=== PATIENT | female | born 1980 | race Caucasian/White ===

== ENCOUNTER 2017-10-30 18:17 | Emergency (ER) | payer OTHER ==
[2017-10-30 18:21] VITALS: BMI 30.2
[2017-10-30 18:25] VITALS: RESP 18; TEMP 98.4; O2SAT 100
--- NOTE | 2017-10-30 19:47 | ED PDOC ---
Arrival/HPI - General Historian: Patient <Ty Paz - Last Filed: 10/30/17 20:20> <Romaine Gracia - Last Filed: 10/31/17 06:30> - General Chief Complaint: Eye Problem Time Seen by Provider: 10/30/17 19:15 - History of Present Illness Narrative History of Present Illness (Text): 10/30/17 19:34 Pt is 37 yo F with no significant PMH presents to ED with 3 days of periorbital swelling. Patients states that there is tenderness around her right eye. Patient states that there is some pain with upward gaze and rightward gaze. Patient denies any trauma, discharge, tearing, or erythematous/irritated eye. Patient denies any recent sick contacts, nasal congestion, post nasal drip, ear pain, throat pain, or shortness of breath. PMD: Joan (Ty Paz) Past Medical History - Infectious Disease Hx of Infectious Diseases: None - Psychiatric Hx Substance Use: No - Surgical History Hx Section: Yes (x1) Other/Comment: R ear surgery - Anesthesia Hx Anesthesia: Yes Hx Anesthesia Reactions: No Hx Malignant Hyperthermia: No <Ty Paz - Last Filed: 10/30/17 20:20> Family/Social History Family/Social History: No Known Family HX Smoking Status: Never Smoked Hx Alcohol Use: No Hx Substance Use: No <Ty Paz - Last Filed: 10/30/17 20:20> Allergies/Home Meds <Ty Paz - Last Filed: 10/30/17 20:20> <Romaine Gracia - Last Filed: 10/31/17 06:30> Allergies/Adverse Reactions: Allergies No Known Allergies Allergy (Verified 10/30/17 18:21) Review of Systems - Physician Review All systems were reviewed & negative as marked: Yes (12 point ROS reviewed and is negative other than what is stated in HPI.) <Ty Paz - Last Filed: 10/30/17 20:20> Physical Exam - Physical Exam Physical Exam Limitations: Altered Mental Status Vital Signs Reviewed: Yes Temperature: Afebrile Blood Pressure: Normal Pulse: Regular Respiratory Rate: Normal Appearance: Positive for: Well-Appearing Pain Distress: None Mental Status: Positive for: Alert and Oriented X 3 - Systems Exam Head: Present: Atraumatic, Normocephalic, Swelling (right periorbital swelling) Pupils: Present: PERRL Extroacular Muscles: Present: EOMI. No: Gaze Palsy, Entrapment Conjunctiva: Present: Normal. No: Injected, Icteric Ears: Present: Normal Mouth: Present: Moist Mucous Membranes Pharnyx: Present: Normal Neck: Present: Normal Range of Motion Respiratory/Chest: Present: Clear to Auscultation. No: Wheezes, Rales, Rhonchi Cardiovascular: Present: Regular Rate and Rhythm Abdomen: No: Tenderness, Distention, Rebound, Guarding Upper Extremity: Present: Normal Inspection Lower Extremity: Present: Normal Inspection Neurological: Present: GCS=15, CN II-XII Intact, Speech Normal Skin: Present: Warm, Dry, Normal Color. No: Rashes Psychiatric: Present: Alert, Oriented x 3, Normal Insight, Normal Concentration <Ty Paz - Last Filed: 10/30/17 20:20> Vital Signs Temp Pulse Resp BP Pulse Ox 10/30/17 20:17 68 18 120/70 100 10/30/17 18:25 98.4 F 82 18 111/71 100 Medical Decision Making <Ty Paz - Last Filed: 10/30/17 20:20> Reassessment Condition: Re-examined, Improved <Romaine Gracia - Last Filed: 10/31/17 06:30> ED Course and Treatment: 10/30/17 19:49 37 yo F presents to ED with right periorbital swelling. DDx discussed with patient including periorbital cellulitis, orbital cellulitis, and blepharitis was explained to patient. The risks of each were discussed and the likelihood of each in her situation. Further workup was offered toher, including lab work and CT scan, however patient elected to be treated conservatively. - Recommend warm compresses, keep right periorbital region clean with mild soap and water - Complete 10 day course of PO abx - Avoid touching/scratching - Follow up with PMD (Ty Paz) i had a long discussion with the patient regarding further lab/radiology imaging work-up which she refused and cautioned for complications but she wanted treatment at this time. 10/31/17 06:29 (Romaine Gracia) - Medication Orders Current Medication Orders: Discontinued Medications Ibuprofen (Motrin Tab) 800 mg PO STAT STA Stop: 10/30/17 20:05 Last Admin: 10/30/17 20:16 Dose: 800 mg Disposition/Present on Arrival - Present on Arrival Any Indicators Present on Arrival: No History of DVT/PE: No History of Uncontrolled Diabetes: No Urinary Catheter: No History of Decub. Ulcer: No History Surgical Site Infection Following: None - Disposition Have Diagnosis and Disposition been Completed?: Yes Disposition Time: 19:51 Patient Plan: Discharge <Ty Paz - Last Filed: 10/30/17 20:20> <Romaine Gracia - Last Filed: 10/31/17 06:30> - Disposition Diagnosis: Periorbital cellulitis of right eye Disposition: HOME/ ROUTINE Condition: STABLE Discharge Instructions (ExitCare): Cellulitis (Skin Infection), Adult (DC) Additional Instructions: 1. Apply warm compresses to affected three to four times a day 2. Complete 10 day course of antibiotics 3. Keep right eye clean with mild soap and water 4. Follow up with primary doctor within 3-5 days 5. Return to ED if symptoms worsen Prescriptions: Cephalexin [Keflex] 500 mg PO Q12H #20 capsule Ibuprofen [Motrin] 600 mg PO TID PRN #15 tab PRN Reason: Pain, Moderate (4-7) Forms: [facility] (Greenlandic)
[2017-10-30 20:17] VITALS: BP 120/70; PULSE 68
== END 2017-10-30 20:17 | disposition home or self-care (01) ==
LOC: MERGE 18:17 → ED 18:17
DX: L03.213 Periorbital cellulitis (principal)

== ENCOUNTER 2017-11-02 18:58 | Inpatient (IN) | payer OTHER ==
[2017-11-02] MEDS ORDERED: Sodium Chloride 0.9% 500 ML IV STA (19:46)
[2017-11-02 20:17] LABS: BASO # 0.03 K/mm3 (0.0-2.0); BASO % 0.5 % (0.0-3.0); EOS # 0.2 (0.0-0.7); EOS % 2.8 % (1.5-5.0); GRAN # 2.95 (1.4-6.5); GRAN % 48.3 % (50.0-68.0); LYMPH # 2.5 (1.2-3.4); LYMPH % 40.5 % (22.0-35.0); MEAN CELL VOLUME 89.9 fl (80.0-105.0); MEAN CORPUSCULAR HGB CONC 33.3 g/dl (31.0-37.0); MEAN PLATELET VOLUME 10.4 fl (7.0-11.0); MONO # 0.5 (0.1-0.6); MONO % 7.9 % (1.0-6.0); RBC 4.34 10^6/uL (3.5-6.1); RED CELL DISTRIBUTION WIDTH 12.5 % (11.5-14.5); WHITE BLOOD COUNT 6.1 10^3/ul (4.5-11.0)
[2017-11-02 20:30] LABS: ALB/GLOB RATIO 1.3 (1.1-1.8); ALBUMIN 4.6 g/dL (3.0-4.8); ALT/SGPT 19 U/L (7-56); AST/SGOT 22 U/L (14-36); BLOOD UREA NITROGEN 20 mg/dL (7-21); CALCIUM 9.7 mg/dL (8.4-10.5); GFR AFRICAN-AMERICAN > 60; GFR NON-AFRICAN AMERICAN > 60
--- NOTE | 2017-11-02 20:33 | ED PDOC ---
Arrival/HPI <Bill Nicole - Last Filed: 11/02/17 22:49> - General Historian: Patient - History of Present Illness Time/Duration: Other (4 days) <Jeannie Mireles - Last Filed: 11/03/17 01:27> - General Chief Complaint: ENT Problem Time Seen by Provider: 11/02/17 19:05 - History of Present Illness Narrative History of Present Illness (Text): 11/02/17 20:29 37yr old female presents today with right eye pain, redness, swelling that has been worsening over the past 4 days. pt states she was seen in the ER for the same complaint and given ABX. pt states the medications are not working. pt states pain and swelling has increased. pt is c/o pain with upward movement of the eye and lateral movement of the eye. pt denies fevers at home. no headache or dizziness. no other complaints. (Jeannie Mireles) Past Medical History - Provider Review Nursing Documentation Reviewed: Yes - Travel History Have you recently traveled outside [place] w/in the past 3 mons?: No - Infectious Disease Hx of Infectious Diseases: None - Psychiatric Hx Substance Use: No - Surgical History Hx Section: Yes (x1) Other/Comment: R ear surgery - Anesthesia Hx Anesthesia: Yes Hx Anesthesia Reactions: No Hx Malignant Hyperthermia: No <Jeannie Mireles - Last Filed: 11/03/17 01:27> Family/Social History - Physician Review Nursing Documentation Reviewed: Yes Family/Social History: Unknown Family HX Smoking Status: Never Smoked Hx Alcohol Use: No Hx Substance Use: No <Jeannie Mireles - Last Filed: 11/03/17 01:27> Allergies/Home Meds <Bill Nicole - Last Filed: 11/02/17 22:49> <Jeannie Mireles - Last Filed: 11/03/17 01:27> Allergies/Adverse Reactions: Allergies No Known Allergies Allergy (Verified 11/02/17 19:13) Review of Systems - Review of Systems Constitutional: absent: Fatigue, Fevers Eyes: Eye Pain. absent: Vision Changes, Photophobia ENT: absent: Sore Throat, Sinus Congestion Respiratory: absent: SOB, Cough Cardiovascular: absent: Chest Pain, Palpitations Gastrointestinal: absent: Abdominal Pain, Nausea, Vomiting Musculoskeletal: absent: Arthralgias Skin: Cellulitis Neurological: absent: Headache, Dizziness Psychiatric: absent: Anxiety, Depression, Suicidal Ideation <Jeannie Mireles - Last Filed: 11/03/17 01:27> Physical Exam Vital Signs Reviewed: Yes Temperature: Afebrile Blood Pressure: Normal Pulse: Regular Respiratory Rate: Normal Appearance: Positive for: Well-Appearing, Non-Toxic, Comfortable Pain Distress: None Mental Status: Positive for: Alert and Oriented X 3 - Systems Exam Head: Present: Atraumatic, Swelling, Other (swelling erythema, warmth noted to right ivelisse orbital region; + tenderness to upper eye lid) Pupils: Present: PERRL Extroacular Muscles: Present: EOMI. No: Entrapment Conjunctiva: Present: Injected (right eye conjunctival injection) Mouth: Present: Moist Mucous Membranes. No: Drooling, Trismus Pharnyx: Present: Normal. No: ERYTHEMA, EXUDATE, TONSILS ENLARGED, Peritonsilar Swelling, Uvular Deviation, Muffled/Hoarse Voice Nose (External): Present: Atraumatic Nose (Internal): Present: Normal Inspection Neck: Present: Normal Range of Motion Respiratory/Chest: Present: Clear to Auscultation, Good Air Exchange. No: Respiratory Distress, Accessory Muscle Use Cardiovascular: Present: Regular Rate and Rhythm, Normal S1, S2. No: Murmurs Neurological: Present: GCS=15, Speech Normal Skin: Present: Warm, Dry, Normal Color. No: Rashes Psychiatric: Present: Alert, Oriented x 3 <Jeannie Mireles - Last Filed: 11/03/17 01:27> Vital Signs Temp Pulse Resp BP Pulse Ox 11/02/17 19:09 98.5 F 84 18 123/76 100 Medical Decision Making <Bill Nicole - Last Filed: 11/02/17 22:49> <Jeannie Mireles - Last Filed: 11/03/17 01:27> ED Course and Treatment: 11/02/17 20:35 37yr old female with right eye redness, swelling worsening despite PO abx. cbc: wnl cmp: wnl blood cultures: pending Ct maxillofacial with contrast; FINDINGS: Bones/joints: No acute fracture. Soft tissues: Normal. Orbits: Mild right periorbital soft tissue swelling. There is asymmetric enlargement of the right lacrimal gland with surrounding induration. There may be slight induration around the left lacrimal gland and slight prominence although is much more on the right. The left retrobulbar fat is normal. There is slight induration of the right retrobulbar fat adjacent to lacrimal gland. Sinuses: Normal. No air-fluid levels. IMPRESSION: 1. Asymmetric enlargement and inflammation of the right lacrimal gland. There is question of slight prominence and induration around the smaller left lacrimal gland as well. Some extension of induration extends into the right retro-bulbar fat. There is mild right periorbital soft tissue swelling. Etiology is uncertain although considerations may include autoimmune disease such as Sjogren's. 2. Otherwise negative maxillofacial CT. zosyn given IV case discussed with dr. ruiz accepts admission all aspects of this case were discussed the attending of record. impression; periorbital cellulitis, failure of outpatient abx admit observational status to med/surg (Jeannie Mireles) - Lab Interpretations Lab Results: 11/02/17 20:12 11/02/17 20:12 Lab Results 11/02/17 20:12: WBC 6.1, RBC 4.34, Hgb 13.0, Hct 39.0, MCV 89.9, MCH 30.0, MCHC 33.3, RDW 12.5, Plt Count 208, MPV 10.4, Gran % 48.3 L, Lymph % (Auto) 40.5 H, Person % (Auto) 7.9 H, Eos % (Auto) 2.8, Baso % (Auto) 0.5, Gran # 2.95, Lymph # ( Auto) 2.5, Person # (Auto) 0.5, Eos # (Auto) 0.2, Baso # (Auto) 0.03 11/02/17 20:12: Sodium 142, Potassium 3.7, Chloride 104, Carbon Dioxide 27, Anion Gap 15, BUN 20, Creatinine 0.7, Est GFR ( Amer) > 60, Est GFR (Non- Af Amer) > 60, Random Glucose 90, Calcium 9.7, Total Bilirubin 0.3, AST 22, ALT 19, Alkaline Phosphatase 44, Total Protein 8.3, Albumin 4.6, Globulin 3.7, Albumin/Globulin Ratio 1.3 - RAD Interpretation Radiology Orders: 11/02/17 19:45 MAXILLOFACIAL W/CONTRAST [CT] Stat - Medication Orders Current Medication Orders: Heparin Sodium (Porcine) (Heparin) 5,000 units SC Q12 MANUELA PRN Reason: Protocol Ketorolac Tromethamine (Toradol) 15 mg IVP Q6 PRN PRN Reason: Pain, moderate (4-7) Pantoprazole Sodium (Protonix Inj) 40 mg IVP DAILY MANUELA Discontinued Medications Sodium Chloride (Sodium Chloride 0.9%) 500 mls @ 999 mls/hr IV .Q31M STA Stop: 11/02/17 20:16 Last Admin: 11/02/17 20:03 Dose: 999 mls/hr eMAR Start Stop Document 11/02/17 20:03 LA (Rec: 11/02/17 20:04 LA [id number]) Intravenous Solution Start Date 11/02/17 Start Time 20:04 End Date 11/02/17 End time 20:35 Total Infusion Time 31 Piperacillin Sod/Tazobactam Sod (Zosyn 3.375 In Ns 100ml) 100 mls @ 200 mls/hr IVPB STAT STA PRN Reason: Protocol Stop: 11/02/17 23:44 Last Admin: 11/02/17 23:30 Dose: 200 mls/hr eMAR Start Stop Document 11/02/17 23:30 JOL (Rec: 11/02/17 23:49 JOL [id number]) Intravenous Solution Start Date 11/02/17 Start Time 23:30 End Date 11/03/17 End time 00:00 Total Infusion Time 30 - 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 NAM has examined the patient and agrees with the treatment plan. <Bill Nicole - Last Filed: 11/02/17 22:49> Disposition/Present on Arrival <Bill Nicole - Last Filed: 11/02/17 22:49> - Present on Arrival Any Indicators Present on Arrival: No History of DVT/PE: No History of Uncontrolled Diabetes: No Urinary Catheter: No History of Decub. Ulcer: No History Surgical Site Infection Following: None - Disposition Have Diagnosis and Disposition been Completed?: Yes Disposition Time: 22:40 Patient Plan: Observation <Jeannie Mireles - Last Filed: 11/03/17 01:27> - Disposition Diagnosis: Periorbital cellulitis of right eye, Failure of outpatient treatment Disposition: HOSPITALIZED Condition: FAIR
[2017-11-02] MEDS ORDERED: Iohexol 350 MG/100 ML VIAL ONE (21:07)
[2017-11-02] MEDS ORDERED: Piperacillin/Tazobact 3.375 gm 100 ML IVPB STA (23:15)
--- NOTE | 2017-11-02 23:46 | CP.PCM.HP ---
<Balaji Paul - Last Filed: 11/03/17 08:46> History of Present Illness - History of Present Illness History of Present Illness: 37 year old female with no past medical history comes in today complaining of right eye pain and swelling for the past three days. Of note the patient was seen in the emergency room three days ago and discharged with Keflex PO. The patient states taking the medications as prescribed however the swelling continued to increase in severity. The patient denies any accidents or trauma to the area. She also denies any makeup changes or or new cleansers to the face. She denies any chest pain, shortness of breath, fevers, chills, nausea, vomiting, syncopal episodes or any other complaints. Past medical history: Denies Allergies: Denies Past surgical history:Denies Social history: Recently moved from [place]. Lost 2 years ago. Denies illicit drug use. Cedric alcohol or smoking PMD: Denies Present on Admission - Present on Admission Any Indicators Present on Admission: No Review of Systems - Constitutional Constitutional: absent: Chills, Daytime Sleepiness, Headache, Night Sweats, Snoring, Weakness - EENT Eyes: Blurred Vision, Change in Vision, Diplopia. absent: Dry Eye Ears: absent: Decreased Hearing, Ear Discharge, Disequilibrium Nose/Mouth/Throat: absent: Nasal Congestion, Nose Pain, Bleeding Gums, Dry Mouth - Cardiovascular Cardiovascular: absent: Chest Pain, Claudication, Irregular Heart Rhythm, Leg Edema, Palpitations, Pedal Edema - Respiratory Respiratory: absent: Dyspnea, Hemoptysis, Snoring, Stridor, Pain on Inspiration - Gastrointestinal Gastrointestinal: absent: Belching, Change in Stool Character, Diarrhea, Dyspepsia, Fecal Incontinence, Loose Stools, Vomiting - Genitourinary Genitourinary: absent: Change in Urinary Stream, Pyuria, Nocturia, Freq UTI, Bladder Distension - Menstruation Menstruation: absent: Cycle Variable - Musculoskeletal Musculoskeletal: absent: Arthralgias, Limited Range of Motion, Muscle Weakness, Myalgias, Stiffness - Integumentary Integumentary: absent: Alopecia, Photosensitivity, Sores, Swelling - Neurological Neurological: absent: Abnormal Gait, Behavioral Changes, Headaches, Paresthesias , Syncope, Tingling, Tremor, Vertigo, Weakness - Endocrine Endocrine: absent: Polydipsia, Polyphagia, Polyuria - Hematologic/Lymphatic Hematologic: absent: Easy Bleeding, Easy Bruising Past Patient History - Infectious Disease Hx of Infectious Diseases: None - Past Social History Smoking Status: Never Smoked - PSYCHIATRIC Hx Substance Use: No - SURGICAL HISTORY Hx Section: Yes (x1) Other/Comment: R ear surgery - ANESTHESIA Hx Anesthesia: Yes Hx Anesthesia Reactions: No Hx Malignant Hyperthermia: No Meds Allergies/Adverse Reactions: Allergies Allergy/AdvReac Type Severity Reaction Status Date / Time No Known Allergies Allergy Verified 11/02/17 19:13 Physical Exam - Head Exam Head Exam: ATRAUMATIC, NORMAL INSPECTION, NORMOCEPHALIC - Eye Exam Eye Exam: EOMI, Normal appearance, PERRL Pupil Exam: PERRL. absent: Fixed, Irregular, Miosis - ENT Exam ENT Exam: Mucous Membranes Moist - Neck Exam Neck exam: Negative for: Lymphadenopathy, Thyromegaly - Respiratory Exam Respiratory Exam: Clear to Auscultation Bilateral, NORMAL BREATHING PATTERN. absent: Chest Wall Tenderness, Prolonged Expiratory Phase, Respiratory Distress - Cardiovascular Exam Cardiovascular Exam: REGULAR RHYTHM, +S1, +S2 - GI/Abdominal Exam GI & Abdominal Exam: Normal Bowel Sounds, Soft. absent: Organomegaly, Tenderness - Extremities Exam Extremities exam: Positive for: normal inspection. Negative for: full ROM, joint swelling, pedal edema - Back Exam Back exam: NORMAL INSPECTION. absent: CVA tenderness (L), CVA tenderness (R), paraspinal tenderness - Neurological Exam Neurological exam: Alert, CN II-XII Intact, Oriented x3 - Psychiatric Exam Psychiatric exam: Normal Affect, Normal Mood - Skin Skin Exam: Dry, Intact Results - Vital Signs Recent Vital Signs: Last Vital Signs Temp 98.5 F 11/02/17 19:09 Pulse 84 11/02/17 19:09 Resp 18 11/02/17 19:09 BP 123/76 11/02/17 19:09 Pulse Ox 100 11/02/17 19:09 - Labs Result Diagrams: 11/03/17 07:00 11/03/17 07:00 Labs: Laboratory Results - last 24 hr 11/02/17 11/02/17 20:12 20:12 WBC 6.1 RBC 4.34 Hgb 13.0 Hct 39.0 MCV 89.9 MCH 30.0 MCHC 33.3 RDW 12.5 Plt Count 208 MPV 10.4 Gran % 48.3 L Lymph % (Auto) 40.5 H [place] % (Auto) 7.9 H Eos % (Auto) 2.8 Baso % (Auto) 0.5 Gran # 2.95 Lymph # (Auto) 2.5 [place] # (Auto) 0.5 Eos # (Auto) 0.2 Baso # (Auto) 0.03 Sodium 142 Potassium 3.7 Chloride 104 Carbon Dioxide 27 Anion Gap 15 BUN 20 Creatinine 0.7 Est GFR ( Amer) > 60 Est GFR (Non-Af Amer) > 60 Random Glucose 90 Calcium 9.7 Total Bilirubin 0.3 AST 22 ALT 19 Alkaline Phosphatase 44 Total Protein 8.3 Albumin 4.6 Globulin 3.7 Albumin/Globulin Ratio 1.3 Assessment & Plan - Assessment and Plan (Free Text) Assessment: 37 year old female with no past medical history being admitted for failure of op treatment of periorbital cellultis Plan: 1. Periorbital cellulitis -Zosyn IV and Vancomycin -Ophthomology Consult. Help appreciated. -ID consult. Help appreciated -Toradol for Pain management PPX -Heparin -Protonix Plan discussed with Dr. Jay. Balaji Paul, PGY1 <Misty CONCEPCION,Terry - Last Filed: 11/03/17 13:49> Results - Vital Signs Recent Vital Signs: Last Vital Signs Temp 98 F 11/03/17 07:00 Pulse 80 11/03/17 07:00 Resp 18 11/03/17 07:00 BP 108/63 11/03/17 07:00 Pulse Ox 100 11/03/17 07:00 - Labs Result Diagrams: 11/03/17 07:00 11/03/17 07:00 Labs: Laboratory Results - last 24 hr 11/03/17 11/03/17 07:00 07:00 WBC 4.0 L D RBC 3.99 Hgb 11.7 L Hct 35.5 L MCV 89.0 MCH 29.3 MCHC 33.0 RDW 12.5 Plt Count 186 MPV 10.1 Gran % 50.3 Lymph % (Auto) 37.1 H [place] % (Auto) 8.8 H Eos % (Auto) 3.5 Baso % (Auto) 0.3 Gran # 1.99 Lymph # (Auto) 1.5 [place] # (Auto) 0.4 Eos # (Auto) 0.1 Baso # (Auto) 0.01 Sodium 143 Potassium 3.9 Chloride 107 Carbon Dioxide 28 Anion Gap 12 BUN 12 Creatinine 0.6 L Est GFR ( Amer) > 60 Est GFR (Non-Af Amer) > 60 Random Glucose 102 Calcium 9.0 Total Bilirubin 0.5 AST 17 ALT 23 Alkaline Phosphatase 37 L Total Protein 6.9 Albumin 3.9 Globulin 3.0 Albumin/Globulin Ratio 1.3 Attending/Attestation - Attestation I have personally seen and examined this patient.: Yes I have fully participated in the care of the patient.: Yes I have reviewed all pertinent clinical information: Yes Notes (Text): -I agree with the above H&P completed by the resident physician with the following additions and/or changes: -The patient is a 37 year old woman with no past medical history, who presents with 3 days of worsening right eye edema, erythema and pain, most consistent with periorbital cellulitis. She had presented to the ED 3 days ago after her symptoms started and was discharged home with oral Keflex which was ineffective. On exam, she has no evidence of proptosis, pain with movement of EOMs or vision loss. She will be placed on empiric IV Zosyn and ophthalmology has been consulted.
[2017-11-03 02:11] VITALS: BMI 24.0
[2017-11-03 07:30] LABS: BASO # 0.01 K/mm3 (0.0-2.0); BASO % 0.3 % (0.0-3.0); EOS # 0.1 (0.0-0.7); EOS % 3.5 % (1.5-5.0); GRAN # 1.99 (1.4-6.5); GRAN % 50.3 % (50.0-68.0); HEMOGLOBIN 11.7 g/dL (12.0-16.0); LYMPH # 1.5 (1.2-3.4); LYMPH % 37.1 % (22.0-35.0); MEAN CORPUSCULAR HEMOGLOBIN 29.3 pg (25.0-35.0); MEAN PLATELET VOLUME 10.1 fl (7.0-11.0); MONO # 0.4 (0.1-0.6); MONO % 8.8 % (1.0-6.0); RBC 3.99 10^6/uL (3.5-6.1); RED CELL DISTRIBUTION WIDTH 12.5 % (11.5-14.5)
[2017-11-03 07:47] LABS: ALB/GLOB RATIO 1.3 (1.1-1.8); ALBUMIN 3.9 g/dL (3.0-4.8); ALT/SGPT 23 U/L (7-56); AST/SGOT 17 U/L (14-36); BLOOD UREA NITROGEN 12 mg/dL (7-21); GFR AFRICAN-AMERICAN > 60; GFR NON-AFRICAN AMERICAN > 60
--- NOTE | 2017-11-03 08:48 | CT ---
PROCEDURE: CT MAXILLOFACIAL BONES WITH CONTRAST HISTORY: R eye pain swelling/redness; r/o orbital celluliti COMPARISON: None. TECHNIQUE: Contiguous axial CT images of the maxillofacial bones were obtained following administration of IV contrast. Coronal and sagittal reformats were generated. Intravenous contrast Dose: Radiation dose: Total exam DLP = mGy-cm. This CT exam was performed using one or more of the following dose reduction techniques: Automated exposure control, adjustment of the mA and/or kV according to patient size, and/or use of iterative reconstruction technique. FINDINGS: NASAL BONES: Unremarkable. ORBITS: Asymmetric enlargement and inflammation of the right lacrimal gland with question of slight prominence an injury [place] around a small left lacrimal gland as well. Extension of induration extends into the right retrobulbar fat with mild right periorbital soft tissue swelling, of uncertain etiology. PARANASAL SINUSES/ MASTOIDS: Clear. MAXILLA: Unremarkable. MANDIBLE/ TEMPOROMANDIBULAR JOINTS: Unremarkable. SKULL BASE: Unremarkable. TEMPORAL BONES: Middle ears and mastoid grossly unremarkable. OTHER FINDINGS: None. IMPRESSION: Asymmetric enlargement and inflammation of the right lacrimal gland with question of slight prominence an injury [place] around a small left lacrimal gland as well. Extension of induration extends into the right retrobulbar fat with mild right periorbital soft tissue swelling, of uncertain etiology.Correlate for Sjogren syndrome.
[2017-11-03] MEDS: Vancomycin 1gm in NS 250ml 1 GM/250 ML BAG IVPB SCH (09:01)
--- NOTE | 2017-11-03 11:09 | CP.PCM.PN ---
<Imani Youngblood - Last Filed: 11/03/17 11:18> Subjective - Date & Time of Evaluation Date of Evaluation: 11/03/17 Time of Evaluation: 11:08 - Subjective Subjective: Imani Youngblood, PGY1, Medicine Progress Note for Dr Trujillo: Patient seen and examined at bedside. No acute events overnight. Pt reports that her right eye swelling and pain is improving today. Denies blurred vision, nasal discharge, headache, nausea, vomiting, fever, chills. Objective - Vital Signs/Intake and Output Vital Signs (last 24 hours): Temp Pulse Resp BP Pulse Ox 98 F 80 18 108/63 100 11/03/17 07:00 11/03/17 07:00 11/03/17 07:00 11/03/17 07:00 11/03/17 07:00 Intake and Output: 11/03/17 11/03/17 06:59 18:59 Intake Total 0 Balance 0 - Medications Medications: Current Medications Heparin Sodium (Porcine) (Heparin) 5,000 units SC Q12 MANUELA PRN Reason: Protocol Last Admin: 11/03/17 09:01 Dose: Not Given Piperacillin Sod/Tazobactam Sod (Zosyn 3.375 In Ns 100ml) 100 mls @ 200 mls/hr IVPB Q6 MANUELA PRN Reason: Protocol Stop: 11/03/17 18:29 Vancomycin HCl (Vancomycin 1gm) 1 gm in 250 mls @ 167 mls/hr IVPB DAILY MANUELA PRN Reason: Protocol Last Admin: 11/03/17 09:01 Dose: 167 mls/hr Ketorolac Tromethamine (Toradol) 15 mg IVP Q6 PRN PRN Reason: Pain, moderate (4-7) Pantoprazole Sodium (Protonix Inj) 40 mg IVP DAILY PENDING SALE TO [facility] Last Admin: 11/03/17 09:01 Dose: Not Given - Labs Labs: 11/03/17 07:00 11/03/17 07:00 - Additional Findings Additional findings: - Head Exam Head Exam: ATRAUMATIC, NORMAL INSPECTION, NORMOCEPHALIC - Eye Exam Eye Exam: EOMI, PERRL. right eye periorbital swelling/erythema, no conjunctival erythema, + mild swelling noted Pupil Exam: PERRL. absent: Fixed, Irregular, Miosis - ENT Exam ENT Exam: Mucous Membranes Moist - Neck Exam Neck exam: Negative for: Lymphadenopathy, Thyromegaly - Respiratory Exam Respiratory Exam: Clear to Auscultation Bilateral, NORMAL BREATHING PATTERN. absent: Chest Wall Tenderness, Prolonged Expiratory Phase, Respiratory Distress - Cardiovascular Exam Cardiovascular Exam: REGULAR RHYTHM, +S1, +S2 - GI/Abdominal Exam GI & Abdominal Exam: Normal Bowel Sounds, Soft. absent: Organomegaly, Tenderness - Extremities Exam Extremities exam: Positive for: normal inspection. Negative for: full ROM, joint swelling, pedal edema - Back Exam Back exam: NORMAL INSPECTION. absent: CVA tenderness (L), CVA tenderness (R), paraspinal tenderness - Neurological Exam Neurological exam: Alert, CN II-XII Intact, Oriented x3 - Psychiatric Exam Psychiatric exam: Normal Affect, Normal Mood - Skin Skin Exam: Dry, Intact Assessment and Plan - Assessment and Plan (Free Text) Assessment: 37 year old female with no PMH, presents for preseptal cellulitis: Periorbital cellulitis: -Zosyn and Vancomycin -Ophthomology Consult. Contacted Dr King's office today, states that Dr Alexander is covering today - [phone] (Dr will be in after 12:00 PM today). -ID consult. F/u recs. -Toradol for Pain management -Maxillofacial CT shows asymmetric enlargement and inflammation of the right lacrimal gland with question of slight prominence an injury medina around a small left lacrimal gland as well. Extension of induration extends into the right retrobulbar fat with mild right periorbital soft tissue swelling, of uncertain etiology.Correlate for Sjogren syndrome. PPX: -Heparin -Protonix Case seen and discussed with Dr. Trujillo. Imani Youngblood, PGY1 <Holli Trujillo - Last Filed: 11/03/17 14:32> Objective - Vital Signs/Intake and Output Vital Signs (last 24 hours): Temp Pulse Resp BP Pulse Ox 98 F 80 18 108/63 100 11/03/17 07:00 11/03/17 07:00 11/03/17 07:00 11/03/17 07:00 11/03/17 07:00 - Medications Medications: Current Medications Acetaminophen (Tylenol 325mg Tab) 650 mg PO Q4H PRN PRN Reason: MILD PAIN AND FEVER Famotidine (Pepcid) 40 mg PO HS MANUELA Heparin Sodium (Porcine) (Heparin) 5,000 units SC Q12 MANUELA PRN Reason: Protocol Last Admin: 11/03/17 09:01 Dose: Not Given Vancomycin HCl (Vancomycin 1gm) 1 gm in 250 mls @ 167 mls/hr IVPB DAILY MANUELA PRN Reason: Protocol Last Admin: 11/03/17 09:01 Dose: 167 mls/hr Meropenem (Merrem Iv 1 Gm Premix) 50 mls @ 100 mls/hr IVPB Q8 MANUELA PRN Reason: Protocol Stop: 11/10/17 14:01 Ketorolac Tromethamine (Toradol) 15 mg IVP Q6 PRN PRN Reason: Pain, moderate (4-7) Attending/Attestation - Attestation I have personally seen and examined this patient.: Yes I have fully participated in the care of the patient.: Yes I have reviewed all pertinent clinical information, including history, physical exam and plan: Yes Notes (Text): 11/03/17 14:30 37 year old female with no significant past medical history presents with right periorbitial cellulitis. She was recently prescribed keflex and did not respond to treatment. CT maxillofacial showed enlargement and inflammation of right lacrimal gland. Continue with iv antibiotics. ID and ophthalmology evaluation was requested. Holli Trujillo MD Hospitalist.
[2017-11-03] MEDS ORDERED: Piperacillin/Tazobact 3.375 gm 100 ML IVPB SCH (12:00)
--- NOTE | 2017-11-03 15:10 | MRI ---
PROCEDURE: MRI BRAIN WITHOUT CONTRAST HISTORY: r/o sinus ds COMPARISON: None. TECHNIQUE: Multiplanar, multisequence MR images of the brain were obtained without intravenous contrast enhancement. FINDINGS: HEMORRHAGE: None DWI: No evidence of an acute or early subacute infarction. BRAIN PARENCHYMA: No mass effect or edema. No atrophy or chronic microvascular ischemic changes. VENTRICLES: Unremarkable. No hydrocephalus. CRANIUM: Unremarkable. ORBITS: Grossly unremarkable. PARANASAL SINUSES/MASTOIDS: Clear VASCULAR SYSTEM: Skull base flow voids intact. OTHER FINDINGS: None. IMPRESSION: Unremarkable non contrast enhanced MRI of the brain.
[2017-11-03] MEDS: Meropenem IV 1 gm in NS 50 ML IVPB SCH ×2 (15:50→21:16)
--- NOTE | 2017-11-04 01:19 | CON ---
DATE: 11/03/2017 LOCATION: The patient was seen earlier today in 373, bed 3. CHIEF COMPLAINT: Right eye swelling x1 week duration. HISTORY OF PRESENT ILLNESS: This is a 37-year-old female originally from [place], has not been in the [place] for over a year who was admitted with a right eye pain, redness, and swelling, which have gotten progressively worse last few days and she states it started approximately a week ago and it became worse so she could not see out of her right eye. She denied any fevers, any chills. She denied any trauma to the eye and she denies any headaches or blurred vision. No neck pain. No sore throat. No earaches. PAST MEDICAL HISTORY: Significant only for a and right ear surgery in the past. ALLERGIES: THE PATIENT HAS NO KNOWN ALLERGIES. MEDICATIONS AT HOME: Include the patient to be on Keflex and Motrin. PHYSICAL EXAMINATION: GENERAL: She is in bed, answering questions appropriately, in no acute distress. VITAL SIGNS: Temperature of 98, heart rate of 84, blood pressure is 120/80, respiratory rate of 18. HEENT: Reveals erythema and edema around the right eye and the extraocular muscles are intact. No evidence of orbital involvement. She is able to follow on exam. The pupils are reactive to accommodation. NECK: Supple. LUNGS: Have decreased breath sounds. HEART: Normal S1, S2. ABDOMEN: Soft, nontender. LABORATORY DATA: Reveals a white count of 6.1, hemoglobin of 13, platelets of 208. Chemistries reveals a BUN of 20, creatinine of 0.7. The patient had a CAT scan of the maxillofacial, was read by Dr. Bill Martinez, asymmetric enlargement and inflammation of right lacrimal gland with a question of right slight prominence and injury around small left lacrimal gland as well, extension of the induration. History and physical examination is reviewed. Progress note is reviewed. ASSESSMENT AND PLAN: This is a 37-year-old [place] female with a right periorbital cellulitis, etiology of which is not clear. We will treat the patient with vancomycin and meropenem and recommend an ENT consultation and recommend imaging of the orbit and CAT scan of the sinuses and an MRI of the head and/or of the sinuses. We will check on the culture results and we will order an HIV test because of her age and ENT consultation. We will follow with you. Viktor Meeks MD
[2017-11-04] MEDS: Meropenem IV 1 gm in NS 50 ML IVPB SCH ×3 (05:59→21:47)
[2017-11-04 07:14] LABS: BASO # 0.02 K/mm3 (0.0-2.0); BASO % 0.4 % (0.0-3.0); EOS # 0.2 (0.0-0.7); EOS % 3.8 % (1.5-5.0); GRAN # 2.82 (1.4-6.5); GRAN % 56.7 % (50.0-68.0); HEMOGLOBIN 12.5 g/dL (12.0-16.0); LYMPH # 1.6 (1.2-3.4); LYMPH % 32.1 % (22.0-35.0); MEAN CELL VOLUME 89.3 fl (80.0-105.0); MEAN CORPUSCULAR HEMOGLOBIN 29.7 pg (25.0-35.0); MEAN CORPUSCULAR HGB CONC 33.2 g/dl (31.0-37.0); MEAN PLATELET VOLUME 10.5 fl (7.0-11.0); MONO # 0.4 (0.1-0.6); RBC 4.21 10^6/uL (3.5-6.1); RED CELL DISTRIBUTION WIDTH 12.6 % (11.5-14.5)
[2017-11-04 07:25] LABS: ALB/GLOB RATIO 1.2 (1.1-1.8); ALBUMIN 3.9 g/dL (3.0-4.8); ALT/SGPT 20 U/L (7-56); AST/SGOT 18 U/L (14-36); BLOOD UREA NITROGEN 12 mg/dL (7-21); CALCIUM 8.9 mg/dL (8.4-10.5); GFR AFRICAN-AMERICAN > 60; GFR NON-AFRICAN AMERICAN > 60
[2017-11-04] MEDS: Vancomycin 1gm in NS 250ml 1 GM/250 ML BAG IVPB SCH (10:00)
--- NOTE | 2017-11-04 14:49 | CP.PCM.PN ---
<Imani Youngblood - Last Filed: 11/04/17 14:44> Subjective - Date & Time of Evaluation Date of Evaluation: 11/04/17 Time of Evaluation: 12:00 - Subjective Subjective: Imani Youngblood, PGY1, Medicine Progress Note for Dr Trujillo: Patient seen and examined at bedside. No acute events overnight. Pt reports improvement of right eye pain/swelling. Denies blurred vision, nasal discharge, headache, nausea, vomiting, fever, chills. Objective - Vital Signs/Intake and Output Vital Signs (last 24 hours): Temp Pulse Resp BP Pulse Ox 99 F 74 18 108/63 100 11/04/17 06:00 11/04/17 06:00 11/04/17 06:00 11/04/17 06:00 11/04/17 06:00 Intake and Output: 11/04/17 11/04/17 06:59 18:59 Intake Total 480 1320 Balance 480 1320 - Medications Medications: Current Medications Acetaminophen (Tylenol 325mg Tab) 650 mg PO Q4H PRN PRN Reason: MILD PAIN AND FEVER Famotidine (Pepcid) 40 mg PO HS MANUELA Last Admin: 11/03/17 21:16 Dose: 40 mg Heparin Sodium (Porcine) (Heparin) 5,000 units SC Q12 MANUELA PRN Reason: Protocol Last Admin: 11/04/17 10:01 Dose: Not Given Vancomycin HCl (Vancomycin 1gm) 1 gm in 250 mls @ 167 mls/hr IVPB DAILY MANUELA PRN Reason: Protocol Last Admin: 11/04/17 10:00 Dose: 167 mls/hr Meropenem (Merrem Iv 1 Gm Premix) 50 mls @ 100 mls/hr IVPB Q8 MANUELA PRN Reason: Protocol Stop: 11/10/17 14:01 Last Admin: 11/04/17 13:36 Dose: 100 mls/hr Ketorolac Tromethamine (Toradol) 15 mg IVP Q6 PRN PRN Reason: Pain, moderate (4-7) - Labs Labs: 11/04/17 07:03 11/04/17 07:03 - Additional Findings Additional findings: - Head Exam Head Exam: ATRAUMATIC, NORMAL INSPECTION, NORMOCEPHALIC - Eye Exam Eye Exam: EOMI, PERRL. right eye periorbital swelling/erythema (mildly improved since yesterday - able to open eye), no conjunctival erythema Pupil Exam: PERRL. absent: Fixed, Irregular, Miosis - ENT Exam ENT Exam: Mucous Membranes Moist - Neck Exam Neck exam: Negative for: Lymphadenopathy, Thyromegaly - Respiratory Exam Respiratory Exam: Clear to Auscultation Bilateral, NORMAL BREATHING PATTERN. absent: Chest Wall Tenderness, Prolonged Expiratory Phase, Respiratory Distress - Cardiovascular Exam Cardiovascular Exam: REGULAR RHYTHM, +S1, +S2 - GI/Abdominal Exam GI & Abdominal Exam: Normal Bowel Sounds, Soft. absent: Organomegaly, Tenderness - Extremities Exam Extremities exam: Positive for: normal inspection. Negative for: full ROM, joint swelling, pedal edema - Back Exam Back exam: NORMAL INSPECTION. absent: CVA tenderness (L), CVA tenderness (R), paraspinal tenderness - Neurological Exam Neurological exam: Alert, CN II-XII Intact, Oriented x3 - Psychiatric Exam Psychiatric exam: Normal Affect, Normal Mood - Skin Skin Exam: Dry, Intact Assessment and Plan - Assessment and Plan (Free Text) Assessment: 37 year old female with no PMH, presents for preseptal cellulitis: Periorbital cellulitis: -Merrem and Vancomycin -Ophthomology Consult. Spoke with Dr Dillon Alexander, who recommends completing IV abx today in hospital. Possible discharge tomorrow or Thursday with PO antibiotics. -ID consult. appreciate recs. -Toradol for Pain management -Maxillofacial CT shows asymmetric enlargement and inflammation of the right lacrimal gland with question of slight prominence an injury medina around a small left lacrimal gland as well. Extension of induration extends into the right retrobulbar fat with mild right periorbital soft tissue swelling, of uncertain etiology.Correlate for Sjogren syndrome. - MRI brain negative for any sinusitis. PPX: -Heparin -Protonix Patient will follow up with PMD Dr Franco and Optho Dr Alexander (in 1 week), upon discharge. Case seen and discussed with Dr. Trujillo. Imani Youngblood, PGY1 <Holli Trujillo - Last Filed: 11/04/17 17:42> Objective - Vital Signs/Intake and Output Vital Signs (last 24 hours): Temp Pulse Resp BP Pulse Ox 98.8 F 88 18 99/55 L 99 11/04/17 14:00 11/04/17 14:00 11/04/17 14:00 11/04/17 14:00 11/04/17 14:00 Intake and Output: 11/04/17 11/04/17 06:59 18:59 Intake Total 480 1320 Balance 480 1320 - Medications Medications: Current Medications Acetaminophen (Tylenol 325mg Tab) 650 mg PO Q4H PRN PRN Reason: MILD PAIN AND FEVER Famotidine (Pepcid) 40 mg PO HS MANUELA Last Admin: 11/03/17 21:16 Dose: 40 mg Heparin Sodium (Porcine) (Heparin) 5,000 units SC Q12 MANUELA PRN Reason: Protocol Last Admin: 11/04/17 10:01 Dose: Not Given Vancomycin HCl (Vancomycin 1gm) 1 gm in 250 mls @ 167 mls/hr IVPB DAILY MANUELA PRN Reason: Protocol Last Admin: 11/04/17 10:00 Dose: 167 mls/hr Meropenem (Merrem Iv 1 Gm Premix) 50 mls @ 100 mls/hr IVPB Q8 MANUELA PRN Reason: Protocol Stop: 11/10/17 14:01 Last Admin: 11/04/17 13:36 Dose: 100 mls/hr Ketorolac Tromethamine (Toradol) 15 mg IVP Q6 PRN PRN Reason: Pain, moderate (4-7) - Labs Labs: 11/04/17 07:03 11/04/17 07:03 Attending/Attestation - Attestation I have personally seen and examined this patient.: Yes I have fully participated in the care of the patient.: Yes I have reviewed all pertinent clinical information, including history, physical exam and plan: Yes Notes (Text): 11/04/17 17:41 37 year old female with no significant past medical history who presented with right periorbitial cellulitis. She was recently prescribed keflex and did not respond to treatment. CT maxillofacial showed enlargement and inflammation of right lacrimal gland. MRI was negative. Symptoms are slowly improving on iv antibiotics. ID and ophthalmology evaluations were appreciated. Holli Trjuillo MD Hospitalist.
--- NOTE | 2017-11-04 15:07 | CON ---
DATE: 11/04/2017 HISTORY OF PRESENT ILLNESS: The patient is a 37-year-old female with a history of right upper lid swelling starting last week. She reported that she presented to the Emergency Room last Thursday, was treated with oral antibiotics. She noted that she did not get better over the weekend and the swelling and pain increased. She was admitted for IV antibiotics on Thursday. The patient reports that she feels that her swelling has gone down and her eye feels better since Thursday. She reports no double vision and on exam, her vision is 20/20 on near for both eyes. Her intraocular pressure is within normal limits. On exam, she has right upper lid and right lower lid swelling with slight tenderness temporarily of the right upper lid. Her extraocular movements are complete. She has no pupillary defect. Her cornea, lens are clear in both eyes. Her nerve and retina appear healthy and normal. ASSESSMENT: Periorbital cellulitis, right eye. RECOMMENDATIONS: The patient appears to be responding to IV antibiotics and is doing very well. I recommend for her to continue the IV antibiotics. If she appears better or much better by tomorrow, she most likely can be discharged by the end of the day tomorrow, otherwise most likely on Thursday, discharge with oral antibiotics. She can always make an appointment at the office next week at [phone] and if there are any questions, you can also just call that number. Dillon Alexander MD
--- NOTE | 2017-11-04 20:59 | PN ---
DATE: 11/04/2017 SUBJECTIVE: The patient is in bed in no acute distress, nontoxic. PHYSICAL EXAMINATION VITAL SIGNS: Temperature of 98, blood pressure is 99/50, respiratory rate of 18. HEENT: Examination of HEENT is unremarkable. NECK: Supple. LUNGS: Have decreased breath sounds. HEART: Normal S1 and S2. ABDOMEN: Soft, nontender. LABORATORY DATA: Laboratory examination reveals the patient's white count of 5, hemoglobin of 12, sed rate is 11. Chemistries reveals a BUN of 12, creatinine of 0.7, and C-reactive protein is 7.2, which is within normal range. The patient's RPR is nonreactive. Microbiology reveals the eye cultures is no growth. Blood culture is negative and MRI of the brain is negative. Dr. Imani Youngblood's progress note is reviewed. ASSESSMENT AND PLAN: This is a 37-year-old female who is seen earlier today this morning in 573, bed 3. An [place] female with right periorbital cellulitis who is up this morning is greatly improved on vancomycin and meropenem may be able to discharge if she continuously improve on p.o. doxycycline and p.o. Augmentin. Viktor Meeks MD
[2017-11-04 23:01] VITALS: RESP 20
[2017-11-05] MEDS: Meropenem IV 1 gm in NS 50 ML IVPB SCH ×2 (05:48→13:35)
[2017-11-05 07:28] LABS: BASO # 0.05 K/mm3 (0.0-2.0); EOS # 0.2 (0.0-0.7); EOS % 3.7 % (1.5-5.0); GRAN # 2.38 (1.4-6.5); GRAN % 48.3 % (50.0-68.0); HEMOGLOBIN 12.4 g/dL (12.0-16.0); LYMPH # 1.9 (1.2-3.4); LYMPH % 37.5 % (22.0-35.0); MEAN CELL VOLUME 88.9 fl (80.0-105.0); MEAN CORPUSCULAR HEMOGLOBIN 29.2 pg (25.0-35.0); MEAN CORPUSCULAR HGB CONC 32.9 g/dl (31.0-37.0); MEAN PLATELET VOLUME 10.2 fl (7.0-11.0); MONO # 0.5 (0.1-0.6); MONO % 9.5 % (1.0-6.0); RBC 4.24 10^6/uL (3.5-6.1); RED CELL DISTRIBUTION WIDTH 12.5 % (11.5-14.5); WHITE BLOOD COUNT 4.9 10^3/ul (4.5-11.0)
[2017-11-05 07:41] LABS: ALB/GLOB RATIO 1.2 (1.1-1.8); ALT/SGPT 21 U/L (7-56); AST/SGOT 17 U/L (14-36); BLOOD UREA NITROGEN 15 mg/dL (7-21); CALCIUM 9.2 mg/dL (8.4-10.5); GFR AFRICAN-AMERICAN > 60; GFR NON-AFRICAN AMERICAN > 60
[2017-11-05 08:03] VITALS: BP 103/69; PULSE 81; TEMP 98.2; O2SAT 98
[2017-11-05] MEDS: Vancomycin 1gm in NS 250ml 1 GM/250 ML BAG IVPB SCH (10:04)
--- NOTE | 2017-11-05 12:50 | CP.PCM.DIS ---
<Imani Youngblood - Last Filed: 11/05/17 15:43> Provider - Provider Date of Admission: 11/03/17 14:09 Attending physician: Holli Trujillo MD Primary care physician: Joaquín Franco MD Consults: Lewis Meeks Time Spent in preparation of Discharge (in minutes): 60 Diagnosis - Discharge Diagnosis (1) Failure of outpatient treatment Status: Acute (2) Periorbital cellulitis of right eye Status: Acute Hospital Course - Lab Results Lab Results: Most Recent Lab Values WBC 4.9 10^3/ul (4.5-11.0) 11/05/17 06:45 RBC 4.24 10^6/uL (3.5-6.1) 11/05/17 06:45 Hgb 12.4 g/dL (12.0-16.0) 11/05/17 06:45 Hct 37.7 % (36.0-48.0) 11/05/17 06:45 MCV 88.9 fl (80.0-105.0) 11/05/17 06:45 MCH 29.2 pg (25.0-35.0) 11/05/17 06:45 MCHC 32.9 g/dl (31.0-37.0) 11/05/17 06:45 RDW 12.5 % (11.5-14.5) 11/05/17 06:45 Plt Count 198 10^3/uL (120.0-450.0) 11/05/17 06:45 MPV 10.2 fl (7.0-11.0) 11/05/17 06:45 Gran % 48.3 % (50.0-68.0) L 11/05/17 06:45 Lymph % (Auto) 37.5 % (22.0-35.0) H 11/05/17 06:45 [place] % (Auto) 9.5 % (1.0-6.0) H 11/05/17 06:45 Eos % (Auto) 3.7 % (1.5-5.0) 11/05/17 06:45 Baso % (Auto) 1.0 % (0.0-3.0) 11/05/17 06:45 Gran # 2.38 (1.4-6.5) 11/05/17 06:45 Lymph # (Auto) 1.9 (1.2-3.4) 11/05/17 06:45 [place] # (Auto) 0.5 (0.1-0.6) 11/05/17 06:45 Eos # (Auto) 0.2 (0.0-0.7) 11/05/17 06:45 Baso # (Auto) 0.05 K/mm3 (0.0-2.0) 11/05/17 06:45 ESR 11 mm/hr (0.0-20.0) 11/04/17 07:03 Sodium 141 mmol/L (132-148) 11/05/17 06:45 Potassium 4.2 mmol/L (3.6-5.0) 11/05/17 06:45 Chloride 103 mmol/L (98-107) 11/05/17 06:45 Carbon Dioxide 28 mmol/L (21-33) 11/05/17 06:45 Anion Gap 13 (10-20) 11/05/17 06:45 BUN 15 mg/dL (7-21) 11/05/17 06:45 Creatinine 0.7 mg/dl (0.7-1.2) 11/05/17 06:45 Est GFR ( Amer) > 60 11/05/17 06:45 Est GFR (Non-Af Amer) > 60 11/05/17 06:45 Random Glucose 102 mg/dL (70-110) 11/05/17 06:45 Calcium 9.2 mg/dL (8.4-10.5) 11/05/17 06:45 Total Bilirubin 0.3 mg/dL (0.2-1.3) 11/05/17 06:45 AST 17 U/L (14-36) 11/05/17 06:45 ALT 21 U/L (7-56) 11/05/17 06:45 Alkaline Phosphatase 35 U/L (38-126) L 11/05/17 06:45 C-Reactive Protein 7.20 mg/L (0.0-9.9) 11/04/17 07:03 Total Protein 7.2 g/dL (5.8-8.3) 11/05/17 06:45 Albumin 4.0 g/dL (3.0-4.8) 11/05/17 06:45 Globulin 3.2 gm/dL 11/05/17 06:45 Albumin/Globulin Ratio 1.2 (1.1-1.8) 11/05/17 06:45 RPR Nonreactive (NONREACTIVE) 11/04/17 07:03 HIV 1&2 Ag/Ab, 4th Gen Nonreactive (Nonreactive) 11/04/17 07:03 - Hospital Course Hospital Course: 37 year old female with no past medical history comes to [facility] [place] for right eye pain and swelling for the past three days. Of note, the patient was seen in the emergency room three days ago and discharged with Keflex PO. The patient states taking the medications as prescribed however the swelling continued to increase in severity. The patient denies any accidents or trauma to the area. She also denies any makeup changes or or new cleansers to the face. Pt was admitted for periorbital cellulitis, started on merrem and vancomycin IV, maxillofacial CT showed asymmetric enalrgement and inflammation of right lacrimal gland. MRI brain negative for any sinusitis. Opthalmology consulted, recommended IV abx and discharge. Today, pt's eye swelling had reduced, discharged home with PO Augmentin and Doxycycline as per ID. Patient to follow up with Dr Franco and Dr Alexander in 1 week. Case seen and discussed with Dr Trujillo. Imani Youngblood, PGY1 Discharge Exam - Additional Findings Additional findings: - Head Exam Head Exam: ATRAUMATIC, NORMAL INSPECTION, NORMOCEPHALIC - Eye Exam Eye Exam: EOMI, PERRL. right eye periorbital swelling/erythema (much improved since admission), no conjunctival erythema Pupil Exam: PERRL. absent: Fixed, Irregular, Miosis - ENT Exam ENT Exam: Mucous Membranes Moist - Neck Exam Neck exam: Negative for: Lymphadenopathy, Thyromegaly - Respiratory Exam Respiratory Exam: Clear to Auscultation Bilateral, NORMAL BREATHING PATTERN. absent: Chest Wall Tenderness, Prolonged Expiratory Phase, Respiratory Distress - Cardiovascular Exam Cardiovascular Exam: REGULAR RHYTHM, +S1, +S2 - GI/Abdominal Exam GI & Abdominal Exam: Normal Bowel Sounds, Soft. absent: Organomegaly, Tenderness - Extremities Exam Extremities exam: Positive for: normal inspection. Negative for: full ROM, joint swelling, pedal edema - Back Exam Back exam: NORMAL INSPECTION. absent: CVA tenderness (L), CVA tenderness (R), paraspinal tenderness - Neurological Exam Neurological exam: Alert, CN II-XII Intact, Oriented x3 - Psychiatric Exam Psychiatric exam: Normal Affect, Normal Mood - Skin Skin Exam: Dry, Intact Discharge Plan - Discharge Medications Prescriptions: Amoxicillin/Clavulanate [Augmentin 875 MG-125 MG] 1 tab PO Q12 7 Days tab Doxycycline Hyclate 100 mg PO BID 7 Days capsule - Follow Up Plan Condition: GOOD Disposition: HOME/ ROUTINE Patient education suggested?: Yes Instructions: Cellulitis (Skin Infection), Adult (DC) Additional Instructions: - Take Augmentin and doxycycline for 7 days. - Follow up with PMD in 1 week. - Follow up with opthalmology Dr Alexander in 1 week. #[phone]. - Return to ER if any symptoms return. Referrals: Joaquín Franco MD [Primary Care Provider] - Dillon Alexander [Staff Provider] - <Holli Trujillo - Last Filed: 11/05/17 16:16> Provider - Provider Date of Admission: 11/03/17 14:09 Attending physician: Holli Trujillo MD Primary care physician: Joaquín Franco MD Hospital Course - Lab Results Lab Results: Most Recent Lab Values WBC 4.9 10^3/ul (4.5-11.0) 11/05/17 06:45 RBC 4.24 10^6/uL (3.5-6.1) 11/05/17 06:45 Hgb 12.4 g/dL (12.0-16.0) 11/05/17 06:45 Hct 37.7 % (36.0-48.0) 11/05/17 06:45 MCV 88.9 fl (80.0-105.0) 11/05/17 06:45 MCH 29.2 pg (25.0-35.0) 11/05/17 06:45 MCHC 32.9 g/dl (31.0-37.0) 11/05/17 06:45 RDW 12.5 % (11.5-14.5) 11/05/17 06:45 Plt Count 198 10^3/uL (120.0-450.0) 11/05/17 06:45 MPV 10.2 fl (7.0-11.0) 11/05/17 06:45 Gran % 48.3 % (50.0-68.0) L 11/05/17 06:45 Lymph % (Auto) 37.5 % (22.0-35.0) H 11/05/17 06:45 [place] % (Auto) 9.5 % (1.0-6.0) H 11/05/17 06:45 Eos % (Auto) 3.7 % (1.5-5.0) 11/05/17 06:45 Baso % (Auto) 1.0 % (0.0-3.0) 11/05/17 06:45 Gran # 2.38 (1.4-6.5) 11/05/17 06:45 Lymph # (Auto) 1.9 (1.2-3.4) 11/05/17 06:45 [place] # (Auto) 0.5 (0.1-0.6) 11/05/17 06:45 Eos # (Auto) 0.2 (0.0-0.7) 11/05/17 06:45 Baso # (Auto) 0.05 K/mm3 (0.0-2.0) 11/05/17 06:45 ESR 11 mm/hr (0.0-20.0) 11/04/17 07:03 Sodium 141 mmol/L (132-148) 11/05/17 06:45 Potassium 4.2 mmol/L (3.6-5.0) 11/05/17 06:45 Chloride 103 mmol/L (98-107) 11/05/17 06:45 Carbon Dioxide 28 mmol/L (21-33) 11/05/17 06:45 Anion Gap 13 (10-20) 11/05/17 06:45 BUN 15 mg/dL (7-21) 11/05/17 06:45 Creatinine 0.7 mg/dl (0.7-1.2) 11/05/17 06:45 Est GFR ( Amer) > 60 11/05/17 06:45 Est GFR (Non-Af Amer) > 60 11/05/17 06:45 Random Glucose 102 mg/dL (70-110) 11/05/17 06:45 Calcium 9.2 mg/dL (8.4-10.5) 11/05/17 06:45 Total Bilirubin 0.3 mg/dL (0.2-1.3) 11/05/17 06:45 AST 17 U/L (14-36) 11/05/17 06:45 ALT 21 U/L (7-56) 11/05/17 06:45 Alkaline Phosphatase 35 U/L (38-126) L 11/05/17 06:45 C-Reactive Protein 7.20 mg/L (0.0-9.9) 11/04/17 07:03 Total Protein 7.2 g/dL (5.8-8.3) 11/05/17 06:45 Albumin 4.0 g/dL (3.0-4.8) 11/05/17 06:45 Globulin 3.2 gm/dL 11/05/17 06:45 Albumin/Globulin Ratio 1.2 (1.1-1.8) 11/05/17 06:45 RPR Nonreactive (NONREACTIVE) 11/04/17 07:03 T.pallidum Ab (FTA-ABS) Nonreactive (Nonreactive) 11/04/17 07:03 HIV 1&2 Ag/Ab, 4th Gen Nonreactive (Nonreactive) 11/04/17 07:03 Attending/Attestation - Attestation I have personally seen and examined this patient.: Yes I have fully participated in the care of the patient.: Yes I have reviewed all pertinent clinical information, including history, physical exam and plan: Yes Notes (Text): 11/05/17 16:14 37 year old female with no significant past medical history who presented with right periorbitial cellulitis. She was recently prescribed keflex and did not respond to treatment. CT maxillofacial showed enlargement and inflammation of right lacrimal gland. MRI was negative. She was started on iv antibiotics with improvement of symptoms. She was seen by ID and ophthalmology. Patient is discharged home on po augmentin and doxycyline. Follow up with PMD and ophthalmology. Holli Trujillo MD Hospitalist.
--- NOTE | 2017-11-06 01:02 | PN ---
DATE: 11/05/2017 SUBJECTIVE: Patient is in bed, in no acute distress, nontoxic. PHYSICAL EXAMINATION: VITAL SIGNS: Temperature is 98, blood pressure is 103/60, respiratory rate of 16. HEENT: Unremarkable. NECK: Supple. LUNGS: Have decreased breath sounds. HEART: Normal S1, S2. ABDOMEN: Soft, nontender. EYES: Examination of the right eye, is almost resolved. She has full vision. Extraocular muscles are intact. Her edema and erythema is almost resolved. ASSESSMENT AND PLAN: A 37-year-old female with right periorbital cellulitis which greatly improved and may be able to be discharged on p.o. doxycycline and p.o. Augmentin. Follow up _Ophthalmology as outpatient, PMD as outpatient. Viktor Meeks MD
== END 2017-11-05 17:47 | disposition home or self-care (01) | DRG 278 ==
LOC: ED 18:58 → ERH 23:44 → 5RSO 11-03 01:33 → OBSVTOIN 11-03 14:09
PROVIDERS: ADMIT Internal Medicine; ATTEND Internal Medicine
DX: L03.213 Periorbital cellulitis (principal); B95.8 Unspecified staphylococcus as the cause of diseases classified elsewhere